=== PATIENT | male | born 1950 | race Caucasian/White ===

== ENCOUNTER 2016-11-23 09:26 | Outpatient (CLI) | payer MEDICARE, OTHER | END 2016-11-23 23:59 | disposition home or self-care (01) | LOC: WOU 09:26 | PROVIDERS: ATTEND Podiatrist Foot & Ankle Surgery | DX: E11.9 Type 2 diabetes mellitus without complications (principal); L85.3 Xerosis cutis; R60.0 Localized edema; I10 Essential (primary) hypertension | CPT/HCPCS: G0463 ==